=== PATIENT | male | born 1990 | race Caucasian/White ===

== ENCOUNTER 2024-11-05 14:30 | Emergency (ER) | payer BC ==
[2024-11-05] MEDS: Lidocaine 1% with EPINEPHrine 1:100,000 20 ML MDV INFILT PRN (15:35)
== END 2024-11-05 16:10 | disposition home or self-care (01) ==
LOC: VM.ED 14:30
DX: S61.411A Laceration without foreign body of right hand, initial encounter (principal); W27.0XXA Contact with workbench tool, initial encounter
CPT/HCPCS: 12001; 99282; 99283; J3490